=== PATIENT | male | born 1995 | race Two or more races ===

== ENCOUNTER 2021-06-18 20:57 | Emergency (ER) | payer SELFPAY ==
[~2021-06-18] VITALS: Ht 167.6 cm; Wt 83.5 kg
--- NOTE | 2021-06-18 21:10 | NUR ---
Patient BIB [id number], C/C: sudden onset CP. Patient stated he started feeling pressure in his chest, and felt like he was going to pass out prior to arrival. Paramedics took EKG and stated the patient was in sinus rhythm upon their arrival. Patient denies CP or pressure at this time, stating he just feels a little bit weak and nausated. Denies syncopy.
--- NOTE | 2021-06-18 21:25 | NUR ---
Patient taken by picking tech out for x-ray and CT.
[2021-06-18 21:30] LABS: HEMATOCRIT 41.8 % (36.7-47.1); MEAN CORPUSCULAR HEMOGLOBIN 31.3 uug (23.8-33.4); MEAN CORPUSCULAR VOLUME 89.9 fL (73.0-96.2); PLATELET COUNT (AUTO) 160 K/uL (152-348)
[2021-06-18 21:41] LABS: CARBON DIOXIDE 28 mmol/L (21-32); CHLORIDE 104 mmol/L (98-107); GLUCOSE 136 mg/dL (74-106); POTASSIUM 3.6 mmol/L (3.5-5.1); UREA NITROGEN, BLOOD 19 mg/dL (7-18)
[2021-06-18 21:53] LABS: ALANINE AMINOTRANSFERASE 64 U/L (16-63); ALKALINE PHOSPHATASE 85 U/L (50-136); ASPARTATE AMINOTRANSFERASE 29 U/L (15-37); BILIRUBIN,DIRECT < 0.1 mg/dL (0.0-0.2); BILIRUBIN,TOTAL 0.4 mg/dL (0.2-1.0); TOTAL PROTEIN, SERUM 7.4 g/dL (6.4-8.2)
--- NOTE | 2021-06-19 | NUR ---
Patient is resting comfortably in bed with eyes closed, no acute distress noted.
[2021-06-19 01:40] VITALS: BP 120/72
--- NOTE | 2021-06-19 01:40 | NUR ---
Patient discharged to home in stable condition. Written and verbal after care instructions given. Patient verbalizes understanding of instructions. Stressed follow up or return to ER for worsening s/s. Patient ambulates with steady gait, V/S stable, and left with all personal belongings.
== END 2021-06-19 01:40 | disposition home or self-care (01) ==
LOC: ER 20:58
DX: R55 Syncope and collapse (principal); R00.0 Tachycardia, unspecified; R94.31 Abnormal electrocardiogram [ECG] [EKG]
CPT/HCPCS: 36415; 70030-TC; 70450; 71045; 85025; 93005; A4663